=== PATIENT | male | born 1960 | race Caucasian/White ===

== ENCOUNTER → 2020-02-19 | Outpatient (CLI) | payer BC ==
[~2020-02-19] MED LIST: ACET-1600 PO
[2020-02-19 12:18] LABS: MICROSCOPIC NOT IND
[2020-02-19 12:19] LABS: BASOPHILS # (AUTO) 0.02 x10^3/uL (0-0.1); BASOPHILS % (AUTO) 0 % (0-1); EOSINOPHILS % (AUTO) 2 % (1-7); LYMPHOCYTES # (AUTO) 1.81 x10^3/uL (1-3.4); LYMPHOCYTES % (AUTO) 30 % (22-44); MD NO; MEAN CORPUSCULAR HEMOGLOBIN 32.8 pg (27.5-34.5); MEAN CORPUSCULAR HGB CONC 33.5 g/dL (33.2-36.2); MEAN CORPUSCULAR VOLUME 97.9 fL (81-97); MEAN PLATELET VOLUME 6.6 fL (7.4-10.4); MONOCYTES # (AUTO) 0.55 x10^3/uL (0.2-0.8); MONOCYTES % (AUTO) 9 % (2-9); NEUTROPHILS # (AUTO) 3.61 x10^3/uL (1.8-6.8); NEUTROPHILS % (AUTO) 59 % (42-75); PLATELET COUNT 303 x10^3/uL (130-400); RED BLOOD COUNT 4.62 x10^6/uL (4.38-5.82); RED CELL DISTRIBUTION WIDTH 13.6 % (9.4-14.8)
[2020-02-19 12:28] LABS: INTERNATIONAL NORMALIZED RATIO 0.92 (0.93-1.1); PROTHROMBIN TIME 9.7 Seconds (9.6-11.5)
[2020-02-19 12:29] LABS: ALANINE AMINOTRANSFERASE 45 U/L (12-78); ANION GAP 5 mmol/L (5-15); CALCIUM 9.1 mg/dL (8.5-10.1); CHLORIDE 105 mmol/L (98-107); CREATININE 1.02 mg/dL (0.7-1.3)
[2020-02-19 12:31] LABS: ALKALINE PHOSPHATASE 68 U/L (45-117); BILIRUBIN,TOTAL 0.3 mg/dL (0.2-1.0); TOTAL PROTEIN 7.9 g/dL (6.4-8.2)
== END | disposition home or self-care (01) ==
LOC: STAR 11:02
PROVIDERS: ATTEND Neurological Surgery
DX: Z01.818 Encounter for other preprocedural examination (principal); M48.061 Spinal stenosis, lumbar region without neurogenic claudication; M43.10 Spondylolisthesis, site unspecified
CPT/HCPCS: 36415; 80053; 81003; 85025; 85610; 85730; 93005

== ENCOUNTER 2020-02-26 06:36 | Inpatient (IN) | payer BC, OTHER ==
[~2020-02-26] VITALS: Ht 188 cm; Wt 99.7 kg
[2020-02-26] MEDS ORDERED: LACTATED RINGERS 1,000 ML IV SCH (07:12)
[2020-02-26] MEDS ORDERED: MINERAL OIL 10 ML VIAL MC ONE (07:17)
[2020-02-26] MEDS ORDERED: VANCOMYCIN 1,000 MG ONE (07:17)
[2020-02-26] MEDS ORDERED: BUPIVACAINE/PF-EPI 0.5% 1:200K ONE (07:17)
[2020-02-26] MEDS ORDERED: AMIT10TA PO (07:18)
[2020-02-26] MEDS ORDERED: BACITRACIN 50,000 UNIT ONE (07:18)
[2020-02-26] MEDS ORDERED: CHLORHEXIDINE 15 ML UDC MM ONE (07:30)
[2020-02-26] MEDS ORDERED: GABAPENTIN 300 MG CAPSULE ONE (09:11)
[2020-02-26] MEDS ORDERED: ACETAMINOPHEN 500 MG TABLET ONE (09:12)
[2020-02-26] MEDS ORDERED: FENTANYL PF 250 MCG/5ML ONE ×2 (09:12→10:53)
[2020-02-26] MEDS ORDERED: MIDAZOLAM 1 MG/ML, 2ML ONE (09:12)
[2020-02-26] MEDS ORDERED: DEXAMETHASONE 4 MG/ML, 1ML ONE ×2 (09:14→09:58)
[2020-02-26] MEDS ORDERED: GABAPENTIN 300 MG CAPSULE PO ONE (09:30)
[2020-02-26] MEDS ORDERED: ACETAMINOPHEN 500 MG TABLET PO ONE (09:30)
[2020-02-26] MEDS ORDERED: PROPOFOL 10 MG/ML, 20ML ONE (09:58)
[2020-02-26] MEDS ORDERED: SUCCINYLCHOLINE 20 MG/ML, 10ML ONE (09:58)
[2020-02-26] MEDS ORDERED: CEFAZOLIN 1,000 MG ONE (09:58)
[2020-02-26] MEDS ORDERED: ONDANSETRON 2MG/ML, 2ML ONE (09:58)
[2020-02-26] MEDS ORDERED: ROCURONIUM 10 MG/ML,10ML ONE (09:58)
[2020-02-26] MEDS ORDERED: PROMETHAZINE 25 MG/ML, 1ML IVPush PRN (10:30)
[2020-02-26] MEDS ORDERED: LABETALOL 5MG/ML, 20ML IV PRN ×2 (10:30→16:30)
[2020-02-26] MEDS ORDERED: MEPERIDINE/PF 25MG/0.5ML IVPush PRN (10:30)
[2020-02-26] MEDS ORDERED: DIPHENHYDRAMINE 50 MG/ML, 1ML IVPush PRN (10:30)
[2020-02-26] MEDS ORDERED: OXYcodone 5 MG/5 ML ORAL.SOL UDC PO PRN (10:30)
[2020-02-26] MEDS ORDERED: ONDANSETRON 2MG/ML, 2ML IVPush PRN (10:30)
[2020-02-26] MEDS ORDERED: hydrALAzine 20 MG/ML, 1ML IV PRN (10:30)
[2020-02-26] MEDS ORDERED: ALBUTEROL SULFATE 2.5 MG/3 ML NPPB PRN (10:30)
[2020-02-26] MEDS ORDERED: MIDAZOLAM 1 MG/ML, 2ML IV PRN (10:30)
[2020-02-26] MEDS ORDERED: PROMETHAZINE 12.5 MG SUPP PR PRN (10:30)
[2020-02-26] MEDS ORDERED: EPHEDRINE 50 MG/ML, 1ML IVPush PRN (10:30)
[2020-02-26] MEDS ORDERED: DIAZEPAM 5 MG/ML, 2ML IVPush PRN (10:30)
[2020-02-26] MEDS ORDERED: FENTANYL PF 100 MCG/2ML IV PRN (10:30)
[2020-02-26] MEDS ORDERED: OXYcodone 5 MG/5 ML ORAL.SOL UDC ONE (12:57)
[2020-02-26] MEDS ORDERED: HYDROmorphone 1 MG/ML, 1ML INJ ONE (12:57)
[2020-02-26] MEDS: HYDROmorphone 1 MG/ML, 1ML INJ IVPush PRN ×3 (13:02→13:21)
[2020-02-26] MEDS ORDERED: CYCLOBENZAPRINE 10 MG TABLET ONE (13:21)
[2020-02-26] MEDS ORDERED: CYCLOBENZAPRINE 10 MG TABLET PO ONE (13:30)
[2020-02-26 15:50] VITALS: BP 133/78
[2020-02-26] MEDS ORDERED: ONDANSETRON 2MG/ML, 2ML IV PRN (16:30)
[2020-02-26] MEDS ORDERED: HYDROcodone/APAP 5/325 TABLET PO PRN (16:30)
[2020-02-26] MEDS ORDERED: PROMETHAZINE 25 MG/ML, 1ML IM PRN (16:30)
[2020-02-26] MEDS ORDERED: BISACODYL 10 MG SUPP PR PRN (16:30)
[2020-02-26] MEDS ORDERED: HYDROcodone/APAP 10/325 MG TABLET PO PRN (16:30)
[2020-02-26] MEDS: CEFAZOLIN PMX 1GM/50ML 50 ML IVPB SCH (17:39)
[2020-02-26] MEDS: NS + 20MEQ KCL 1,000 ML IV SCH (17:39)
[2020-02-26 19:34] VITALS: BP 136/82
[2020-02-26] MEDS: AMITRIPTYLINE 10 MG TABLET PO SCH (21:51)
[2020-02-26] MEDS: CYCLOBENZAPRINE 10 MG TABLET PO PRN (21:51)
[2020-02-27 01:17] VITALS: BP 106/51
[2020-02-27 01:24] VITALS: BP 112/68
[2020-02-27] MEDS: CEFAZOLIN PMX 1GM/50ML 50 ML IVPB SCH (02:29)
[2020-02-27] MEDS: NS + 20MEQ KCL 1,000 ML IV SCH ×3 (02:29→22:30)
[2020-02-27 03:46] VITALS: BP 115/80
[2020-02-27 05:57] LABS: BASOPHILS # (AUTO) 0.01 x10^3/uL (0-0.1); BASOPHILS % (AUTO) 0 % (0-1); EOSINOPHILS # (AUTO) 0.01 x10^3/uL (0-0.4); EOSINOPHILS % (AUTO) 0 % (1-7); LYMPHOCYTES # (AUTO) 1.31 x10^3/uL (1-3.4); LYMPHOCYTES % (AUTO) 11 % (22-44); MD NO; MEAN CORPUSCULAR HEMOGLOBIN 32.3 pg (27.5-34.5); MEAN CORPUSCULAR HGB CONC 33.3 g/dL (33.2-36.2); MEAN CORPUSCULAR VOLUME 97.1 fL (81-97); MEAN PLATELET VOLUME 6.9 fL (7.4-10.4); MONOCYTES # (AUTO) 0.77 x10^3/uL (0.2-0.8); MONOCYTES % (AUTO) 7 % (2-9); NEUTROPHILS # (AUTO) 9.47 x10^3/uL (1.8-6.8); NEUTROPHILS % (AUTO) 82 % (42-75); PLATELET COUNT 254 x10^3/uL (130-400); RED BLOOD COUNT 3.91 x10^6/uL (4.38-5.82); RED CELL DISTRIBUTION WIDTH 13.6 % (9.4-14.8)
[2020-02-27] MEDS: CYCLOBENZAPRINE 10 MG TABLET PO PRN ×3 (06:09→22:37)
[2020-02-27 06:10] LABS: ANION GAP 5 mmol/L (5-15); CALCIUM 8.3 mg/dL (8.5-10.1); CHLORIDE 105 mmol/L (98-107)
[2020-02-27 06:11] LABS: CREATININE 1.03 mg/dL (0.7-1.3)
[2020-02-27] MEDS ORDERED: OXYcodone IR 5MG TABLET PO PRN (07:30)
[2020-02-27 07:55] VITALS: BP 102/62
[2020-02-27] MEDS: ACETAMINOPHEN 325 MG TABLET PO SCH ×3 (08:36→21:01)
[2020-02-27] MEDS: SENNA/DOCUSATE TABLET PO SCH (08:36)
[2020-02-27] MEDS: OXYcodone IR 5MG TABLET PO PRN ×3 (08:37→21:01)
[2020-02-27 14:00] VITALS: BP 105/63
[2020-02-27 19:03] VITALS: BP 114/68
[2020-02-27] MEDS: AMITRIPTYLINE 10 MG TABLET PO SCH (21:01)
[2020-02-28 00:48] VITALS: BP 124/70
[2020-02-28] MEDS: OXYcodone IR 5MG TABLET PO PRN ×5 (01:03→17:15)
[2020-02-28] MEDS: ACETAMINOPHEN 325 MG TABLET PO SCH ×4 (05:14→23:42)
[2020-02-28 05:45] LABS: BASOPHILS # (AUTO) 0.02 x10^3/uL (0-0.1); BASOPHILS % (AUTO) 0 % (0-1); EOSINOPHILS # (AUTO) 0.07 x10^3/uL (0-0.4); EOSINOPHILS % (AUTO) 1 % (1-7); LYMPHOCYTES # (AUTO) 2.01 x10^3/uL (1-3.4); LYMPHOCYTES % (AUTO) 21 % (22-44); MD NO; MEAN CORPUSCULAR HEMOGLOBIN 33.3 pg (27.5-34.5); MEAN CORPUSCULAR VOLUME 98.1 fL (81-97); MEAN PLATELET VOLUME 6.5 fL (7.4-10.4); MONOCYTES # (AUTO) 0.82 x10^3/uL (0.2-0.8); MONOCYTES % (AUTO) 9 % (2-9); NEUTROPHILS # (AUTO) 6.66 x10^3/uL (1.8-6.8); NEUTROPHILS % (AUTO) 70 % (42-75); PLATELET COUNT 259 x10^3/uL (130-400); RED BLOOD COUNT 3.76 x10^6/uL (4.38-5.82); RED CELL DISTRIBUTION WIDTH 13.1 % (9.4-14.8)
[2020-02-28 05:46] LABS: ANION GAP 6 mmol/L (5-15); CALCIUM 8.3 mg/dL (8.5-10.1); CHLORIDE 105 mmol/L (98-107); CREATININE 0.98 mg/dL (0.7-1.3)
[2020-02-28] MEDS: CYCLOBENZAPRINE 10 MG TABLET PO PRN ×2 (06:23→14:37)
[2020-02-28 07:30] VITALS: BP 129/74
[2020-02-28] MEDS: NS + 20MEQ KCL 1,000 ML IV SCH ×2 (08:30→17:17)
[2020-02-28] MEDS: MAGNESIUM HYDROXIDE 8%, 30ML UDC PO PRN (09:38)
[2020-02-28] MEDS: SENNA/DOCUSATE TABLET PO SCH (09:38)
[2020-02-28 12:54] VITALS: BP 121/77
[2020-02-28 19:10] VITALS: BP 148/82
[2020-02-28] MEDS: AMITRIPTYLINE 10 MG TABLET PO SCH (23:42)
[2020-02-29 01:08] VITALS: BP 146/86
[2020-02-29] MEDS: OXYcodone IR 5MG TABLET PO PRN ×2 (01:18→10:01)
[2020-02-29] MEDS: NS + 20MEQ KCL 1,000 ML IV SCH (02:16)
[2020-02-29] MEDS: ACETAMINOPHEN 325 MG TABLET PO SCH (05:28)
[2020-02-29] MEDS: MAGNESIUM HYDROXIDE 8%, 30ML UDC PO PRN (05:30)
[2020-02-29 07:46] VITALS: BP 131/77
[2020-02-29] MEDS: SENNA/DOCUSATE TABLET PO SCH (10:00)
== END 2020-02-29 11:39 | disposition home or self-care (01) | DRG 455 ==
LOC: ORIP 06:36 → 4NE 15:51 → DCLOUNGE 02-29 11:28
PROVIDERS: ADMIT Neurological Surgery; ATTEND Neurological Surgery
PROC: 0SG0071 Fusion of Lumbar Vertebral Joint with Autologous Tissue Substitute, Posterior Approach, Posterior Column, Open Approach (ICD-10-PCS; 2020-02-26)
PROC: 0SB20ZZ Excision of Lumbar Vertebral Disc, Open Approach (ICD-10-PCS; 2020-02-26)
PROC: 00NY0ZZ Release Lumbar Spinal Cord, Open Approach (ICD-10-PCS; 2020-02-26)
PROC: 01NB0ZZ Release Lumbar Nerve, Open Approach (ICD-10-PCS; 2020-02-26)
PROC: 4A11X4G Monitoring of Peripheral Nervous Electrical Activity, Intraoperative, External Approach (ICD-10-PCS; 2020-02-26)
PROC: 0SG00AJ Fusion of Lumbar Vertebral Joint with Interbody Fusion Device, Posterior Approach, Anterior Column, Open Approach (ICD-10-PCS; principal; 2020-02-26 09:30)
DX: M43.16 Spondylolisthesis, lumbar region (principal); M48.061 Spinal stenosis, lumbar region without neurogenic claudication; Z79.899 Other long term (current) drug therapy
CPT/HCPCS: 36415; 72100; 80048; 85025; 86850; 86900; C1713; C1776; G0378; J0690; J1100; J1170; J2250; J2270; J2405; J2704; J3010; J3370; J3480; C1762; J0330; J7120; U0001-CS